=== PATIENT | female | born 1955 | race Caucasian/White ===

== ENCOUNTER → 2020-05-31 | Outpatient (CLI) | payer OTHER ==
[2020-05-31 10:45] LABS: BASOPHIL % 0.2 % (0-2); PLATELET COUNT 231 x10^3mcL (130-400); RED CELL DISTRIBUTION WIDTH 13.2 % (11.5-14.5)
[2020-05-31 10:49] LABS: microscopic required? YES; urine erythrocyte TRACE (NEGATIVE)
[2020-05-31 10:50] LABS: ALBUMIN 3.7 g/dL (3.4-5.0); ALKALINE PHOSPHATASE 72 U/L (46-116); ALT/SGPT 23 U/L (14-59); AST/SGOT 16 U/L (15-37); BILIRUBIN TOTAL 0.5 mg/dL (0.20-1.00); CALCIUM 9.2 mg/dL (8.5-10.1); CARBON DIOXIDE 33.9 mmol/L (21-32); CHLORIDE SERUM 99 mmol/L (98-107); CREATININE SERUM 0.7 mg/dL (0.6-1.0); GFR1 > 60 mL/min; GLUCOSE SERUM 90 mg/dL (74-106); POTASSIUM SERUM 3.8 mmol/L (3.5-5.1); SODIUM SERUM 134 mmol/L (136-145); TOTAL PROTEIN, SERUM 7.2 g/dL (6.4-8.2); TRIGLYCERIDES 78 mg/dL (<150)
[2020-05-31 10:56] LABS: CHOLESTEROL 203 mg/dL (<200); CHOLESTEROL/HDL RATIO 2.7; HDL CHOLESTEROL 76 mg/dL (40-60)
== END | disposition home or self-care (01) ==
LOC: LB 09:59
PROVIDERS: ATTEND Family Medicine
DX: Z00.00 Encounter for general adult medical examination without abnormal findings (principal)